=== PATIENT | female | born 1950 | race Caucasian/White ===

== ENCOUNTER 2018-01-01 12:40 | Emergency (ER) | payer MEDICARE, OTHER ==
[2018-01-01] MEDS: HYDROCODONE/APAP (5/325) TAB PO (13:26)
[2018-01-01] MEDS: ONDANSETRON (ODT) 4 MG TAB ODT (13:26)
== END 2018-01-01 14:42 | disposition home or self-care (01) ==
LOC: FTE 12:40
DX: S42.251A Displaced fracture of greater tuberosity of right humerus, initial encounter for closed fracture (principal); E11.9 Type 2 diabetes mellitus without complications; W19.XXXA Unspecified fall, initial encounter; Y92.9 Unspecified place or not applicable
CPT/HCPCS: 29105; 73010; 73060-RT; 99283-25